=== PATIENT | male | born 1955 | race Caucasian/White ===

== ENCOUNTER → 2019-06-21 | Outpatient (CLI) | payer OTHER ==
[~2019-06-21] MED LIST: KEFLEX500 MG PO; MOBIC15 MG PO; ULTRAM 50MG TAB50 MG PO; ZOCOR; [UNRECOGNIZED DRUG - REMARK]
== END ==
LOC: MRI 08:53
DX: S83.232A Complex tear of medial meniscus, current injury, left knee, initial encounter (principal); S83.282A Other tear of lateral meniscus, current injury, left knee, initial encounter; M67.462 Ganglion, left knee; M25.462 Effusion, left knee; M94.262 Chondromalacia, left knee; X58.XXXA Exposure to other specified factors, initial encounter; Y93.89 Activity, other specified; Y92.89 Other specified places as the place of occurrence of the external cause; Y99.8 Other external cause status

== ENCOUNTER → 2020-07-10 | Outpatient (CLI) | payer OTHER | LOC: LAB 11:29 | PROVIDERS: ATTEND Neuromusculoskeletal Medicine & OMM | DX: Z01.812 Encounter for preprocedural laboratory examination (principal); Z20.828 Contact with and (suspected) exposure to other viral communicable diseases ==

== ENCOUNTER → 2020-09-05 | Outpatient (CLI) | payer OTHER ==
--- NOTE | 2020-09-05 15:39 | EKG ---
[facility] [place] [address] ELECTROCARDIOGRAM REPORT Name: REYES LANG Room #: REG CL M..#: [id number] Admission: 09/05/20 Attend Phys: Esteban Campa MD Discharge: Date of : 51 Report #: [id number] THIS REPORT FOR: cc: Robson Richards Steven F. DO Santiago, Patrick MD [facility] ~ THIS REPORT FOR: //name// [facility] Test Date: 2020-09-05 Test Time: 15:29:57 Pat Name: REYES LANG Department: Room: Gender: Slot Shift Manager: [id number] : 1955 Requested By: Esteban Campa Order Number: [id number] MD: Kofi Yao Measurements Intervals Dwarf Rate: 72 P: 19 VA: 154 QRS: -37 QRSD: 92 T: 16 QT: 385 QTc: 422 Interpretive Statements Sinus rhythm Abnormal R-wave progression, early transition Probable left ventricular hypertrophy No previous ECG available for comparison Electronically Signed On 09-05-2020 15:39:23 CDT by Kofi Yao [email or web address] <ELECTRONICALLY SIGNED> By: Kofi Yao MD, FACC 09/05/20 1539 1529 1529 Kofi Yao MD, [facility] /EPI
[2020-09-05 15:46] LABS: ABSOLUTE NEUTROPHILS 3.9 thou/uL (1.4-8.2); BASOPHILS 1.1 % (0.0-2.0); EOSINOPHILS 6.3 % (0.0-3.0); HEMATOCRIT 36.9 % (42.0-52.0); HEMOGLOBIN 12.5 gm/dL (14.0-18.0); LYMPHOCYTES 17.1 % (24.0-44.0); MCH 30.6 pg (26.0-34.0); MCHC 33.9 g/dL (28.0-37.0); MCV 90.3 fL (80.0-100.0); MONOCYTES 9.5 % (1.0-8.0); PLATELET COUNT 183 thou/uL (150-400); RBC 4.08 mil/uL (4.50-6.00); RDW 13.3 % (10.5-14.5)
[2020-09-05 16:03] LABS: ALBUMIN 3.7 g/dL (3.4-5.0); CALCIUM 9.6 mg/dL (8.5-10.1); CREATININE 1.4 mg/dL (0.7-1.3); POTASSIUM 3.9 mmol/L (3.5-5.1); TOTAL BILIRUBIN 0.6 mg/dL (0.2-1.0); TOTAL PROTEIN 6.6 g/dL (6.4-8.2)
== END ==
LOC: CV 14:35
PROVIDERS: ATTEND Otolaryngology Plastic Surgery within the Head & Neck
DX: J32.2 Chronic ethmoidal sinusitis (principal); J34.89 Other specified disorders of nose and nasal sinuses; J33.9 Nasal polyp, unspecified; J32.3 Chronic sphenoidal sinusitis; J32.1 Chronic frontal sinusitis; J32.0 Chronic maxillary sinusitis; J34.3 Hypertrophy of nasal turbinates; K21.9 Gastro-esophageal reflux disease without esophagitis; R09.89 Other specified symptoms and signs involving the circulatory and respiratory systems; I49.9 Cardiac arrhythmia, unspecified; R49.0 Dysphonia; R05 Cough; Z87.891 Personal history of nicotine dependence

== ENCOUNTER → 2020-09-19 | Outpatient (CLI) | payer OTHER | LOC: LAB 10:22 | PROVIDERS: ATTEND Anesthesiology | DX: Z01.812 Encounter for preprocedural laboratory examination (principal); Z20.828 Contact with and (suspected) exposure to other viral communicable diseases ==

== ENCOUNTER → 2021-03-05 | Outpatient (CLI) | payer OTHER ==
[~2021-03-05] MED LIST changes: +AZELASTINE137 MCG/0. NASAL; +FLONASE 0.05%50 MCG NARES; +PRINIVIL20 MG PO; +PROTONIX40 M2 PO; +ROSUVASTATIN CA20 MG PO; +TYLENOL325 MG PO
== END ==
LOC: LAB 14:18
PROVIDERS: ATTEND Ophthalmology
DX: Z01.812 Encounter for preprocedural laboratory examination (principal); Z20.822 Contact with and (suspected) exposure to COVID-19

== ENCOUNTER 2021-03-08 07:43 | Day surgery (SDC) | payer OTHER ==
[~2021-03-08] VITALS: Ht 177.8 cm; Wt 87.5 kg
--- NOTE | ~2021-03-08 | O ---
[facility] Bernie Olivas [place] [place] [address] OPERATIVE REPORT Name: REYES LANG Room #: DEP [facility]..#: [id number] Admission: 03/08/21 Attend Phys: Minor Mace MD Discharge: 03/08/21 Date of : 51 Report #: [id number] THIS REPORT FOR: cc: Robson Richards,Minor Schuler MD ~ DOC #: [id number] cc: Robson lBanchard MD William L. White, MD DATE OF SERVICE: 03/08/2021 SURGEON: Minor Mace MD PROFESSOR OF COMMUNICATION: None. PREOPERATIVE DIAGNOSIS: Bilateral upper lid dermatochalasia with superior visual field defect. POSTOPERATIVE DIAGNOSIS: Bilateral upper lid dermatochalasia with superior visual field defect. OPERATION PERFORMED: Bilateral upper lid functional blepharoplasty. ANESTHESIA: Local with IV sedation. COMPLICATIONS: None. INDICATIONS FOR SURGERY: This patient has acquired upper lid dermatochalasia with superior visual field loss both eyes because of excessive upper lid tissues to include skin and fat. Visual field testing demonstrates dense superior visual defects. Retesting with the upper lid elevated shows an improvement in visual field loss of over 30% and in excess of 12 degrees. The current procedures are undertaken in order to improve the patient's visual function. Informed consent was obtained to include but not limited to the loss of vision, bleeding, infection, scarring, failure to improve the problem and need for further surgery. DESCRIPTION OF OPERATION: The patient was taken to the operating room, where 2% Xylocaine with epinephrine mixed with equal parts of 0.75% Marcaine with Wydase was administered transcutaneously to each upper lid. The patient was then prepped and draped in the usual sterile fashion and a skin-marking pen was then utilized to outline an upper lid crease that was symmetrical on each side. Graefe forceps were then used to quantitate the redundant upper lid skin and it was similarly outlined. The incisions were then made with Malcolm scissors and [facility] [address] [place] [address] OPERATIVE REPORT Name: REYES LANG Room #: DEP [facility] M.R.#: [id number] Admission: 03/08/21 Attend Phys: Minor Mace MD Discharge: 03/08/21 Date of : 51 Report #: [id number] a skin-muscle flap removed from each side with high-temp cautery. Hemostasis was achieved with the monopolar cautery as it was throughout the case. The orbital septum was then identified and the central and medial fat pads were inspected. The redundant soft tissue was then sculpted with the monopolar cautery. The upper lid crease was then reformed with tightening of the pretarsal orbicularis muscle. The upper lid crease was then further reformed with multiple interrupted 6-0 chromic sutures. The skin was then closed with a running 6-0 plain gut suture. The wound was then cleaned and dressed with ophthalmic antibiotic ointment and a nonstick dressing. The patient was transported to the recovery area, where cold compresses were applied, having tolerated the procedure well with no anesthetic or operative complications being noted. MD GLADYS Roberts/DAVIDA/VIVIANA By: [id number] Minor Mace MD /nt
[2021-03-08 11:16] VITALS: BP 146/103
== END 2021-03-08 14:25 | disposition home or self-care (01) ==
LOC: OR 07:43 → TBA 09:28 → OR 09:32 → EDSTATUS 14:04 → OR 14:15
PROVIDERS: ATTEND Ophthalmology
DX: H02.834 Dermatochalasis of left upper eyelid (principal); H02.831 Dermatochalasis of right upper eyelid; H53.462 Homonymous bilateral field defects, left side; H53.461 Homonymous bilateral field defects, right side; I10 Essential (primary) hypertension; E78.5 Hyperlipidemia, unspecified; K21.9 Gastro-esophageal reflux disease without esophagitis; Z98.890 Other specified postprocedural states; Z79.899 Other long term (current) drug therapy; Z87.891 Personal history of nicotine dependence; Z85.46 Personal history of malignant neoplasm of prostate; Z87.01 Personal history of pneumonia (recurrent)
CPT/HCPCS: 50010; 50101; 50386; 50398; 51636; 56531; 62110; 62850; 70005